=== PATIENT | female | born 1990 | race Caucasian/White ===

== ENCOUNTER 2016-12-02 23:04 | Emergency (ER) | payer OTHER ==
[~2016-12-02] VITALS: Ht 154.9 cm; Wt 68.1 kg
[~2016-12-02 23:04] MED LIST: NAPROSYN500 MG PO; NORCO 5/3251 TABLET PO
[2016-12-03 00:06] LABS: CHLORIDE 106 mEq/L (99-109); POTASSIUM 3.7 mEq/L (3.7-5.4); SODIUM 140 mEq/L (136-147)
[2016-12-03 00:08] LABS: GLUCOSE 119 mg/dL (70-99)
[2016-12-03 00:09] LABS: ANION GAP 10 MEQ/L (2-14)
[2016-12-03 00:10] LABS: TOTAL BILIRUBIN 0.2 mg/dL (0.0-1.0)
[2016-12-03 00:12] LABS: ALKALINE PHOSPHATASE 107 IU/L (3-129); GFR ESTIMATE (CALCULATED) > 59 mL/min/
[2016-12-03 00:13] LABS: UREA NITROGEN (BUN) 18 mg/dL (9-23)
[2016-12-03 00:16] LABS: HEMATOCRIT 37.8 % (36.0-46.0); MCH 28.9 PG (29.0-34.0); MCHC 32.5 G/DL (30.0-36.0); MCV 88.7 FL (83-99); PLATELET COUNT 458 K/uL (156-360); RBC DIS.WIDTH-CV 14.3 % (11.8-14.6); RBC DIS.WIDTH-SD 45.9 % (39-53); RED BLOOD COUNT 4.26 M/uL (3.80-5.20); WHITE BLOOD COUNT 12.2 K/uL (4.1-10.2)
[2016-12-03 00:23] LABS: QUANTITATIVE HCG < 4.0 MIU/ML
[2016-12-03 00:55] LABS: ADD MIUA? NO; BILIRUBIN NEGATIVE; BLOOD NEGATIVE; COLOR YELLOW ((YELLOW)); GLUCOSE (STRIP) NEGATIVE; KETONES NEGATIVE; LEUKOCYTES NEGATIVE; NITRITE NEGATIVE; PH, URINE 7.5 (5-8); PROTEIN (STRIP) TRACE; SPECIFIC GRAVITY 1.029 (1.000-1.030); UCUL ADDED? NO
[2016-12-03 01:10] LABS: LIPASE 17 U/L (1.0-51.0)
[2016-12-03] MEDS ORDERED: PEPCID20 MG PO (02:51)
[2016-12-03] MEDS ORDERED: NORCO 5/3251 TABLET PO (03:00)
[2016-12-03 03:11] VITALS: BP 98/48
== END 2016-12-03 03:12 | disposition home or self-care (01) ==
LOC: EME 23:04
DX: K92.2 Gastrointestinal hemorrhage, unspecified (principal); R10.9 Unspecified abdominal pain; F17.200 Nicotine dependence, unspecified, uncomplicated; Z88.0 Allergy status to penicillin; Z88.8 Allergy status to other drugs, medicaments and biological substances; Z88.1 Allergy status to other antibiotic agents
CPT/HCPCS: 74177; 80053; 81003; 83690; 84702; 85027; 86850; 86900; 86901; 99281; 99284; J2270; J2405; J7030; S0028